=== PATIENT | female | born 1990 | race Two or more races ===

== ENCOUNTER 2022-12-03 12:31 | Emergency (ER) | payer OTHER ==
[2022-12-03 12:40] VITALS: RESP 20; BMI 29.8
[2022-12-03] MEDS ORDERED: ACETAMINOPHEN 1000 MG/100 ML BAG IVPB ONE (13:52)
[2022-12-03] MEDS ORDERED: SODIUM CHLORIDE 0.9% 500 ML INFUS.BAG IV ONE (13:52)
[2022-12-03] MEDS ORDERED: METOCLOPRAMIDE HCL INJECTION 10 MG/2 ML VIAL IVPUSH ONE (13:53)
[2022-12-03] MEDS ORDERED: METOCLOPRAMIDE HCL INJECTION 10 MG/2 ML VIAL ONE (14:38)
[2022-12-03] MEDS ORDERED: ACETAMINOPHEN INJECTION 100 ML IVPB ONE (14:38)
[2022-12-03 15:33] LABS: BASO % 1.2 % (0-2.0); EOS % 0.7 % (0-4.5); HEMOGLOBIN 11.9 GM/dL (10.7-15.3); LYMPH % 48.6 % (8-40); MCH 29.6 pg (25.7-33.7); MCHC 33.1 g/dl (32.0-36.0); MEAN CELL VOLUME 89.5 fl (80-96); MEAN PLT VOLUME 7.9 fl (7.5-11.1); MONO % 11.1 % (3.8-10.2); NEUT % 38.4 % (42.8-82.8); PLATELET COUNT 279 10^3/uL (134-434); RBC 4.02 M/mm3 (3.60-5.2); RDW 14.5 % (11.6-15.6); WHITE BLOOD COUNT 3.7 K/mm3 (4.0-10.0)
[2022-12-03] MEDS ORDERED: KETOROLAC TROMETHAMINE 15 MG/ML VIAL IVPUSH ONE (15:44)
[2022-12-03 16:51] LABS: ALBUMIN 3.7 g/dl (3.4-5.0); CALCIUM 8.9 mg/dL (8.5-10.1)
[2022-12-03 16:54] VITALS: BP 101/68; PULSE 76; TEMP 97.9
[2022-12-03 16:54] LABS: BILIRUBIN,TOTAL 0.3 mg/dL (0.2-1); CREATININE 0.6 mg/dL (0.55-1.3)
[2022-12-03 16:57] LABS: TOT PROT 7.6 g/dl (6.4-8.2)
== END 2022-12-03 17:20 | disposition home or self-care (01) ==
LOC: JER 12:31
PROC: 3E033GC Introduction of Other Therapeutic Substance into Peripheral Vein, Percutaneous Approach (ICD-10-PCS; principal; 2022-12-03)
DX: R51.9 Headache, unspecified (principal)
CPT/HCPCS: 36415; 70450-TC; 80053; 84703; 85025; 99285-25

== ENCOUNTER 2023-04-24 17:37 | Emergency (ER) | payer OTHER ==
[2023-04-24 18:00] VITALS: BP 116/70; PULSE 83; RESP 18; TEMP 98; BMI 31.6
[2023-04-24] MEDS ORDERED: KETOROLAC TROMETHAMINE 30 MG/1 ML VIAL IM ONE (18:56)
[2023-04-24] MEDS ORDERED: LIDOCAINE 5% TOPICAL PATCH TP ONE (18:57)
[2023-04-24] MEDS ORDERED: LIDOCAINE 5% TOPICAL PATCH ONE (19:15)
[2023-04-24 19:27] LABS: EPI CELLS >36 /uL (0-25.1); HYALINE CASTS 1 /uL (0-3.1); URINE APPEARANCE CLOUDY; URINE BACTERIA 659 /uL (0-1359); URINE BILIRUBIN NEGATIVE (NEGATIVE); URINE COLOR YELLOW; URINE GLUCOSE (UA) NEGATIVE (NEGATIVE); URINE KETONE TRACE (NEGATIVE); URINE LEUK ESTERASE 1+ (NEGATIVE); URINE NITRITE NEGATIVE (NEGATIVE); URINE PROTEIN TRACE (NEGATIVE); URINE RBC 49 /uL (0-23.9); URINE WBC 42 /uL (0-25.8)
[2023-04-24 19:44] LABS: EOS % 0.9 % (0-4.5); HEMATOCRIT 36.5 % (32.4-45.2); HEMOGLOBIN 12.1 GM/dL (10.7-15.3); LYMPH % 41.4 % (8-40); MCH 29.1 pg (25.7-33.7); MCHC 33.2 g/dl (32.0-36.0); MEAN CELL VOLUME 87.7 fl (80-96); MONO % 11.4 % (3.8-10.2); NEUT % 45.3 % (42.8-82.8); PLATELET COUNT 278 10^3/uL (134-434); RBC 4.17 M/mm3 (3.60-5.2); WHITE BLOOD COUNT 4.5 K/mm3 (4.0-10.0)
[2023-04-24] MEDS ORDERED: KETOROLAC TROMETHAMINE 30 MG/1 ML VIAL ONE (20:11)
[2023-04-24 20:18] LABS: POTASSIUM 4.4 mmol/L (3.5-5.1)
[2023-04-24 20:20] LABS: ALBUMIN 3.6 g/dl (3.4-5.0); CALCIUM 9.2 mg/dL (8.5-10.1)
[2023-04-24 20:21] LABS: BLOOD UREA NITROGEN 5.9 mg/dL (7-18)
[2023-04-24 20:23] LABS: CREATININE 0.7 mg/dL (0.55-1.3)
[2023-04-24 20:25] LABS: BILIRUBIN,TOTAL 0.3 mg/dL (0.2-1); TOT PROT 7.3 g/dl (6.4-8.2)
[2023-04-24 20:33] LABS: ERYTHROCYTE SEDIMENTATION RATE 10 mm/hr (0-20)
[2023-04-24] MEDS ORDERED: CYCLOBENZAPRINE HCL 10 MG TABLET (FP) PO ONE (20:54)
[2023-04-24] MEDS ORDERED: CYCLOBENZAPRINE HCL 10 MG TABLET (FP) ONE (21:38)
[2023-04-24] MEDS ORDERED: LIDOCAINE PATCH REMOVAL MC ONE (22:00)
== END 2023-04-24 22:17 | disposition home or self-care (01) ==
LOC: JER 17:37
PROC: 3E0233Z Introduction of Anti-inflammatory into Muscle, Percutaneous Approach (ICD-10-PCS; principal; 2023-04-24)
DX: M54.50 Low back pain, unspecified (principal); R30.0 Dysuria; R35.0 Frequency of micturition
CPT/HCPCS: 36415; 72131-TC; 80053; 81003; 84703; 85025; 85651; 87086; 99284-25

== ENCOUNTER 2023-05-02 12:09 | Emergency (ER) | payer OTHER ==
[2023-05-02 12:20] VITALS: BP 119/65; PULSE 65; RESP 18; TEMP 98.5; BMI 31.6
[2023-05-02] MEDS ORDERED: ACETAMINOPHEN 500 MG TABLET (FP) PO ONE (12:41)
[2023-05-02] MEDS ORDERED: ACETAMINOPHEN 500 MG TABLET (FP) ONE (12:44)
[2023-05-02 14:07] LABS: EPI CELLS 2 /uL (0-25.1); HYALINE CASTS 2 /uL (0-3.1); PH,URINE 5.5 (5.0-8.0); URINE APPEARANCE CLEAR; URINE BACTERIA 80 /uL (0-1359); URINE BILIRUBIN NEGATIVE (NEGATIVE); URINE COLOR YELLOW; URINE GLUCOSE (UA) NEGATIVE (NEGATIVE); URINE KETONE NEGATIVE (NEGATIVE); URINE LEUK ESTERASE TRACE (NEGATIVE); URINE NITRITE NEGATIVE (NEGATIVE); URINE PROTEIN NEGATIVE (NEGATIVE); URINE UROBILINOGEN 0.2 mg/dL (0.2-1.0); URINE WBC 0 /uL (0-25.8)
[2023-05-02 14:26] LABS: EOS % 0.7 % (0-4.5); HEMATOCRIT 38.2 % (32.4-45.2); HEMOGLOBIN 12.3 GM/dL (10.7-15.3); LYMPH % 46.6 % (8-40); MCH 28.9 pg (25.7-33.7); MCHC 32.2 g/dl (32.0-36.0); MEAN CELL VOLUME 89.9 fl (80-96); MONO % 13.8 % (3.8-10.2); NEUT % 37.9 % (42.8-82.8); PLATELET COUNT 263 10^3/uL (134-434); RBC 4.25 M/mm3 (3.60-5.2); RDW 13.3 % (11.6-15.6); WHITE BLOOD COUNT 3.8 K/mm3 (4.0-10.0)
[2023-05-02 15:02] LABS: CHLORIDE 113 mmol/L (98-107); SODIUM 142 mmol/L (136-145)
[2023-05-02 15:05] LABS: ALBUMIN 3.3 g/dl (3.4-5.0); BLOOD UREA NITROGEN 5.7 mg/dL (7-18); CO2 23 mmol/L (21-32); GLUCOSE,RANDOM 88 mg/dL (74-106)
[2023-05-02 15:07] LABS: CREATININE 0.8 mg/dL (0.55-1.3)
[2023-05-02 15:08] LABS: SGOT/AST 42 U/L (15-37); SGPT/ALT 19 U/L (13-61)
[2023-05-02 15:09] LABS: BILIRUBIN,TOTAL 0.5 mg/dL (0.2-1); TOT PROT 7.2 g/dl (6.4-8.2)
[2023-05-02 15:10] LABS: ALK PHOS 61 U/L (45-117)
[2023-05-02 15:12] LABS: ANION GAP 6 MMOL/L (8-16); POTASSIUM 6.5 mmol/L (3.5-5.1)
[2023-05-02 17:26] LABS: POTASSIUM 4.3 mmol/L (3.5-5.1)
[2023-05-02 17:28] LABS: BLOOD UREA NITROGEN 7.3 mg/dL (7-18); CALCIUM 8.8 mg/dL (8.5-10.1)
[2023-05-02 17:32] LABS: CREATININE 0.7 mg/dL (0.55-1.3)
[2023-05-02 19:13] LABS: URINE RBC 153.7 /uL (0-23.9)
== END 2023-05-02 18:19 | disposition home or self-care (01) ==
LOC: JER 12:09
DX: M54.50 Low back pain, unspecified (principal)
CPT/HCPCS: 36415; 74177-TC; 76705-TC; 80048; 80053; 81003; 84703; 85025; 87086; 99285-25; Q9967